=== PATIENT | male | born 1995 | race Caucasian/White ===

== ENCOUNTER 2025-08-28 18:52 | Emergency (ER) | payer OTHER ==
[~2025-08-28] VITALS: Ht 185.4 cm; Wt 102.0 kg
[2025-08-28 19:27] VITALS: TEMP 36.9; O2SAT 99
[2025-08-28 19:52] VITALS: TEMP 98.5
[2025-08-28] MEDS: ACETAMINOPHEN 500MG TABLET PO ONE (19:52)
[2025-08-28] MEDS: TETANUS, DIPHTHERIA, PERTUSSIS VAC/PF 0.5ML (>10YR OLD) IM ONE (19:53)
[2025-08-28] MEDS: BACITRACIN ZINC OINT UDPKT TOP ONE (19:58)
[2025-08-28] MEDS: LIDOCAINE HCL 1% 20ML VIAL INFIL ONE (20:09)
[2025-08-28] MEDS ORDERED: BO1 TP (21:07)
[2025-08-28 22:15] VITALS: BP 111/78; PULSE 88; RESP 18; O2SAT 98
== END 2025-08-28 22:16 | disposition home or self-care (01) ==
LOC: ER 18:52
DX: S61.411A Laceration without foreign body of right hand, initial encounter (principal); S61.212A Laceration without foreign body of right middle finger without damage to nail, initial encounter; S61.216A Laceration without foreign body of right little finger without damage to nail, initial encounter; X58.XXXA Exposure to other specified factors, initial encounter; Y93.89 Activity, other specified; Y92.89 Other specified places as the place of occurrence of the external cause; Y99.8 Other external cause status
CPT/HCPCS: 73120; 90715; 12004; 90471; 99283; J2003; Z7610 ×2